=== PATIENT | male | born 1965 | race Two or more races ===

== ENCOUNTER 2018-02-20 06:43 | Day surgery (SDC) | payer OTHER ==
[2018-02-20] MEDS ORDERED: CEFAZOLIN SODIUM/DEXTROSE,ISO 50 ML IV ONE (07:36)
[2018-02-20] MEDS ORDERED: MIDAZOLAM HCL 2 MG/2ML VIAL ONE (08:32)
[2018-02-20] MEDS ORDERED: SUCCINYLCHOLINE CHLORIDE 20 MG/ML VIAL ONE (08:32)
[2018-02-20] MEDS ORDERED: FENTANYL PF 100MCG/2ML AMPUL ONE (08:32)
[2018-02-20] MEDS ORDERED: BUPIVACAINE 0.25% 75 MG/30 ML VIAL ONE ×2 (08:34→09:10)
[2018-02-20] MEDS ORDERED: EPINEPHRINE (1:1000) MDV 30 MG/30ML VIAL ONE (09:10)
== END 2018-02-20 11:51 | disposition home or self-care (01) ==
LOC: DS 06:43
PROVIDERS: ATTEND Specialist
DX: M75.111 Incomplete rotator cuff tear or rupture of right shoulder, not specified as traumatic (principal); M75.21 Bicipital tendinitis, right shoulder; M75.41 Impingement syndrome of right shoulder; M19.011 Primary osteoarthritis, right shoulder; M24.111 Other articular cartilage disorders, right shoulder; M94.211 Chondromalacia, right shoulder; F17.200 Nicotine dependence, unspecified, uncomplicated; E66.3 Overweight; Z68.27 Body mass index [BMI] 27.0-27.9, adult
CPT/HCPCS: 23412; 23430; 29822; 29824; 88304; 88311; A4217; A4565; A6253; A6402; C1713; J0171; J0330; J0690; J1100; J2250; J2405; J2704; J2710; J3010; J3490 ×2; Z7610